=== PATIENT | female | born 1955 | race Caucasian/White ===

== ENCOUNTER → 2018-12-21 | Outpatient (CLI) | payer BC ==
[~2018-12-21] VITALS: Ht 156.2 cm; Wt 90.7 kg
[~2018-12-21] MED LIST: BENADRYL25 M2 PO; DYAZIDE 25 MG-31 CAP PO; STOOL SOFTENER100 M2 PO
[2018-12-21 09:07] VITALS: BP 142/78; PULSE 64
== END ==
LOC: LIGHT
DX: E88.81 Metabolic syndrome and other insulin resistance (principal); I10 Essential (primary) hypertension; R73.01 Impaired fasting glucose; E66.9 Obesity, unspecified; Z68.37 Body mass index [BMI] 37.0-37.9, adult; Z71.3 Dietary counseling and surveillance
CPT/HCPCS: G0463

== ENCOUNTER → 2019-01-02 | Outpatient (CLI) | payer BC ==
[~2019-01-02] VITALS: Ht 156.2 cm; Wt 90.3 kg
[2019-01-02 12:45] VITALS: BP 130/80; PULSE 80
== END ==
LOC: LIGHT 08:10
DX: E88.81 Metabolic syndrome and other insulin resistance (principal); I10 Essential (primary) hypertension; R73.01 Impaired fasting glucose; E66.9 Obesity, unspecified; Z68.37 Body mass index [BMI] 37.0-37.9, adult; Z71.3 Dietary counseling and surveillance

== ENCOUNTER → 2019-01-09 | Outpatient (CLI) | payer BC | LOC: LIGHT 09:45 | DX: E88.81 Metabolic syndrome and other insulin resistance (principal); I10 Essential (primary) hypertension; R73.01 Impaired fasting glucose; E66.9 Obesity, unspecified; Z68.37 Body mass index [BMI] 37.0-37.9, adult; Z71.3 Dietary counseling and surveillance ==

== ENCOUNTER → 2019-01-26 | Outpatient (CLI) | payer BC ==
[~2019-01-26] VITALS: Ht 156.2 cm; Wt 90.3 kg
[2019-01-26 11:39] VITALS: BP 140/90; PULSE 76
== END ==
LOC: LIGHT 11:00
DX: E88.81 Metabolic syndrome and other insulin resistance (principal); I10 Essential (primary) hypertension; R73.01 Impaired fasting glucose; E66.9 Obesity, unspecified; Z68.37 Body mass index [BMI] 37.0-37.9, adult; Z71.3 Dietary counseling and surveillance
CPT/HCPCS: G0463

== ENCOUNTER → 2019-01-31 | Outpatient (CLI) | payer BC | LOC: BHSO 08:46 | DX: Z01.818 Encounter for other preprocedural examination (principal); E66.01 Morbid (severe) obesity due to excess calories ==

== ENCOUNTER → 2019-03-06 | Outpatient (CLI) | payer BC ==
[~2019-03-06] VITALS: Ht 156.2 cm; Wt 90.9 kg
[2019-03-06 15:09] VITALS: BP 150/84; PULSE 76
== END ==
LOC: LIGHT 13:19
DX: Z01.818 Encounter for other preprocedural examination (principal); E66.01 Morbid (severe) obesity due to excess calories; Z68.37 Body mass index [BMI] 37.0-37.9, adult; Z71.3 Dietary counseling and surveillance
CPT/HCPCS: G0463

== ENCOUNTER → 2019-03-21 | Outpatient (CLI) | payer BC, OTHER ==
[~2019-03-21] VITALS: Ht 156.2 cm; Wt 90.0 kg
== END ==
LOC: LIGHT 09:06
DX: E66.01 Morbid (severe) obesity due to excess calories (principal); Z68.36 Body mass index [BMI] 36.0-36.9, adult; Z71.3 Dietary counseling and surveillance

== ENCOUNTER → 2019-03-27 | Outpatient (CLI) | payer BC, OTHER ==
[~2019-03-27] MED LIST changes: +B-12 500 MCG PO; +CENTRUM SILVER1 CTB PO
== END ==
LOC: LIGHT 09:51
DX: E88.81 Metabolic syndrome and other insulin resistance (principal); I10 Essential (primary) hypertension; R73.01 Impaired fasting glucose; E66.9 Obesity, unspecified; Z68.37 Body mass index [BMI] 37.0-37.9, adult; Z71.3 Dietary counseling and surveillance

== ENCOUNTER 2019-03-29 08:15 | Day surgery (SDC) | payer BC, OTHER ==
[2019-03-29] VITALS (8 sets, daily range): BP systolic 127–151; BP diastolic 54–64; PULSE 64–73; TEMP 97.4–98.7
[~2019-03-29] VITALS: Ht 154.9 cm; Wt 89.0 kg
[~2019-03-29 08:15] MED LIST changes: -B-12 500 MCG PO; -CENTRUM SILVER1 CTB PO
[2019-03-29] MEDS ORDERED: B-12 500 MCG PO (09:31)
[2019-03-29] MEDS ORDERED: CENTRUM SILVER1 CTB PO (09:31)
--- NOTE | 2019-03-29 17:30 | NUR ---
Pt ambulated to bathroom, urinated clear yellow urine, then ambulated in quiroz aprox 250feet without difficutly. Back to room, call light in reach
[2019-03-30 00:27] VITALS: BP 106/51; PULSE 65; TEMP 98.5
[2019-03-30 04:17] VITALS: BP 111/50; PULSE 63; TEMP 98
--- NOTE | 2019-03-30 07:18 | NUR ---
Pt to radiology at this time.
--- NOTE | 2019-03-30 07:41 | NUR ---
Pt is awake and A/Ox4, ambulating around room. She states her pain to her abdomen is minimal, rating it a 2/10. Lap sites x4 + STARLA drain site are CDI. STARLA drain draining serosanginous drainage with small clots. Pt tolerating blue gatorade without difficulty. Denies futher needs. Will monitor.
[2019-03-30 08:06] VITALS: BP 117/60; PULSE 66; TEMP 98.2
--- NOTE | 2019-03-30 09:27 | NUR ---
survey workers supervisor met with patient to discuss discharge planning. Patient lives with her spouse (that is currently planning for deployment) in [place], [place]. Patient plans to return home, possibly today and states that her children and grandchildren are local and suppportive. Patient states she will have a ride home. Patient's primary care provider is Dr Jo in [place]. Patient confirms that she has [employer]BS as primary and secondary. Patient works and plans to return on Wednesday, as tolerated. Patient states she has prescription coverage through [employer] and will obtain at a local pharmacy. Patient states that she made advance directives several years ago. Worker confirmed that we do not have directives on file at the hospital and encourages patient to bring them when she can.
--- NOTE | 2019-03-30 10:57 | NUR ---
Follow up visit; Patient thanked Splitting Machine Operator Helper for looking in on her again, offering her encouragement and to keep her in Splitting Machine Operator Helper's prayers.
[2019-03-30 12:02] VITALS: BP 137/66; PULSE 69; TEMP 98.4
[2019-03-30 16:00] VITALS: BP 136/58; PULSE 67; TEMP 98
--- NOTE | 2019-03-30 17:15 | NUR ---
STARLA drain to right side of abdomen removed per order. 2 stitches removed, pressure held and gauze/tegaderm dressing applied.
--- NOTE | 2019-03-30 17:51 | NUR ---
1400 received report from JAMAL Patricia. Patient awake, alert and oriented x 4, lying semi-almaguer's in bed. Patient reported getting up to go to bathroom with no complaints of dizziness or light-headedness. I provided education on splinting techniques for pain, diet and exercise recommendations, and signs and symptoms of post-surgical complications that would need to be reported. Patient expressed no further concerns at this time. Call light within reach, bed at lowest position. 1750 reported off to JAMAL Patricia.
[2019-03-30] MEDS ORDERED: ZOFRAN 4MG T4 MG/TAB PO (17:54)
[2019-03-30] MEDS ORDERED: NORCO 325 MG-51 TAB PO (17:54)
--- NOTE | 2019-03-30 18:24 | NUR ---
Pt was discharged home from hospital. All discharge instructions and paperwork was reviewed with pt who expressed understanding and had no questions. Saline lock removed by [facility] studentJuan. New presciptions given to pt. Pt was escorted out of facility by staff.
[2019-04-03] MEDS ORDERED: ONE-A-DAY WOM200 MCG PO (15:23)
== END 2019-03-30 18:33 | disposition home or self-care (01) ==
LOC: SDCO 08:15 → SURG 14:00 → SDCO 03-30 18:33
DX: E88.81 Metabolic syndrome and other insulin resistance (principal); E66.01 Morbid (severe) obesity due to excess calories; Z68.37 Body mass index [BMI] 37.0-37.9, adult; E78.00 Pure hypercholesterolemia, unspecified; M19.90 Unspecified osteoarthritis, unspecified site; Z90.710 Acquired absence of both cervix and uterus; Z98.51 Tubal ligation status; I10 Essential (primary) hypertension; G47.33 Obstructive sleep apnea (adult) (pediatric); Z79.899 Other long term (current) drug therapy; Z88.8 Allergy status to other drugs, medicaments and biological substances
CPT/HCPCS: OP; J0690; J1100; J1885; J2300; J2405; J2704; J2710; J3010; J7042; J7120

== ENCOUNTER → 2019-04-03 | Outpatient (CLI) | payer BC, OTHER ==
--- NOTE | 2019-03-29 10:20 | NUR ---
Initial visit; Patient thanked Barrel Handler for offering Prayer and spiritual care prior to her surgical procedure.
[~2019-04-03] VITALS: Ht 154.9 cm; Wt 86.0 kg
[~2019-04-03] MED LIST changes: +B-12 500 MCG PO; +CENTRUM SILVER1 CTB PO; +NORCO 325 MG-51 TAB PO; +ONE-A-DAY WOM200 MCG PO; +ZOFRAN 4MG T4 MG/TAB PO
[2019-04-03 15:23] VITALS: BP 124/86; PULSE 72
== END ==
LOC: LIGHT
DX: E88.81 Metabolic syndrome and other insulin resistance (principal); I10 Essential (primary) hypertension; R73.01 Impaired fasting glucose; Z98.84 Bariatric surgery status; Z68.35 Body mass index [BMI] 35.0-35.9, adult; Z71.3 Dietary counseling and surveillance; E66.9 Obesity, unspecified

== ENCOUNTER → 2019-05-01 | Outpatient (CLI) | payer BC, OTHER ==
[~2019-05-01] VITALS: Ht 154.9 cm; Wt 81.0 kg
[2019-05-01 13:01] VITALS: BP 144/84; PULSE 60
== END ==
LOC: LIGHT 12:49
DX: E88.81 Metabolic syndrome and other insulin resistance (principal); I10 Essential (primary) hypertension; R73.01 Impaired fasting glucose; Z98.84 Bariatric surgery status; Z68.33 Body mass index [BMI] 33.0-33.9, adult; Z71.3 Dietary counseling and surveillance

== ENCOUNTER → 2019-11-27 | Outpatient (CLI) | payer BC, OTHER ==
[~2019-11-27] VITALS: Ht 154.9 cm; Wt 70.5 kg
[2019-11-27 14:16] VITALS: BP 134/78; PULSE 72
== END ==
LOC: LIGHT 11:51
DX: E66.8 Other obesity (principal); Z68.29 Body mass index [BMI] 29.0-29.9, adult; Z98.84 Bariatric surgery status
CPT/HCPCS: G0463

== ENCOUNTER 2024-03-21 14:18 | Observation (INO) | payer BC ==
[~2024-03-21] VITALS: Ht 157.5 cm; Wt 73.1 kg
[~2024-03-21 14:18] MED LIST changes: +MOTRIN 600600 MG/TAB PO
[2024-03-21] MEDS ORDERED: OMNICEF 300MG300 MG PO (15:06)
[2024-03-21] MEDS ORDERED: KLOR-CON SPRIN10 MEQ PO (15:06)
[2024-03-21] MEDS ORDERED: TYLENOL 500MG500 MG PO (15:34)
[2024-03-21] MEDS ORDERED: ADVIL200 MG PO (15:35)
[2024-03-21] MEDS ORDERED: Ketorolac 15 MG/ML VIAL IV SCH (15:45)
[2024-03-21] MEDS ORDERED: Ondansetron 4 MG/2 ML VIAL IV PRN (15:45)
[2024-03-21] MEDS ORDERED: Morphine 4 MG/ML VIAL IV PRN (15:45)
[2024-03-21] MEDS ORDERED: NS 1,000 ML IV SCH (15:45)
[2024-03-21] MEDS ORDERED: Morphine 4 MG/ML VIAL IV ONE (15:45)
--- NOTE | 2024-03-21 16:23 | NUR ---
PATIENT ARRIVED TO FLOOR AT 1500 FROM PRIMARY CARE OFFICE. ADMISSION, ASSESSMENT, AND MED REC COMPLETE. PATIENT STATES PAIN 4/10 NO PAIN MEDS REQUESTED BY PATIENT AT THIS TIME. PATIENT SETTLED IN TO ROOM AND SITTING UP IN RECLINER
[2024-03-21 16:29] VITALS: BP 163/92; PULSE 75; TEMP 98.5
[2024-03-21 16:38] LABS: HEMOGLOBIN 11.2 g/dl (12.5-16.0); MEAN CELL VOLUME 90 fl (80.0-100.0); MEAN CORPUSCULAR HEMOGLOBIN 30 pg (27-31); MEAN CORPUSCULAR HGB CONC 33 g/dl (33.0-37.0); MEAN PLATELET VOLUME 9.7 fl (7.4-10.4); PLATELET COUNT 301 K/mm3 (130-400); RED BLOOD COUNT 3.75 M/mm3 (4.10-5.30)
[2024-03-21 16:44] LABS: HEMATOCRIT 33.7 % (37.0-47.0)
[2024-03-21 16:52] LABS: CALCIUM 9.6 mg/dL (8.4-10.2); CREATININE, serum 1.57 mg/dL (0.57-1.11); POTASSIUM 3.8 mEq/L (3.5-4.5)
--- NOTE | 2024-03-21 17:18 | NUR ---
IV STARTED ON RIGHT AC, PATIENT TOLERATED WELL. FLUIDS STARTED NS 125ML/HR
[2024-03-21] MEDS ORDERED: oxyCODONE 5 MG TAB PO PRN (17:45)
[2024-03-21] MEDS ORDERED: hydrALAZINE 10 MG TAB PO PRN (17:45)
[2024-03-21] MEDS ORDERED: diphenhydrAMINE 25 MG CAP PO PRN (17:45)
[2024-03-21] MEDS ORDERED: Acetaminophen 500 MG TAB PO PRN (17:45)
--- NOTE | 2024-03-21 19:30 | NUR ---
PATIENT IS A&O. REPORTS MILD TO MOD DISCOMFORT IN BILATERAL FLANKS FROM KNOWN KIDNEY STONE. NPO FOR SURGERY TOMORROW. IV FLUIDS INFUSING VIA PUMP INTO RIGHT AC IV. STRAINING URINE. PENDING UA. HEAD TO TOE ASSESSMENT COMPLETE. NO OTHER NEEDS AT THIS TIME. CALL LIGHT IN REACH.
[2024-03-21 19:43] VITALS: BP 150/79; PULSE 73; TEMP 98
[2024-03-21 20:00] VITALS: BP_SYST 150
[2024-03-21 21:33] LABS: COLLECTION METHOD CLEAN CATCH
[2024-03-21 21:48] LABS: PH 5.5 (5.0-8.5); URINE APPEARANCE CLEAR (CLEAR/HAZY); URINE BLOOD 3+ (NEGATIVE); URINE COLOR YELLOW (YELLOW); URINE GLUCOSE NEGATIVE (NEGATIVE); URINE KETONE NEGATIVE (NEGATIVE); URINE NITRATE POSITIVE (NEGATIVE); URINE PROTEIN(semi-quant) 1+ (NEGATIVE)
[2024-03-21 23:48] VITALS: PULSE 100; TEMP 101.3
[2024-03-22] VITALS (19 sets, daily range): BP systolic 107–156; BP diastolic 49–84; PULSE 66–88; TEMP 98.1–100.2
[2024-03-22] MEDS ORDERED: Cefepime 1 G in Water For Injection,Sterile 10 ML IV SCH
[2024-03-22 06:26] LABS: CALCIUM 8.9 mg/dL (8.4-10.2); CREATININE, serum 1.13 mg/dL (0.57-1.11); MAGNESIUM 1.8 mg/dL (1.6-2.6); POTASSIUM 4.2 mEq/L (3.5-4.5)
[2024-03-22] MEDS ORDERED: NS 1,000 ML IV SCH (08:30)
[2024-03-22] MEDS ORDERED: Cefdinir 300 MG CAP PO SCH (09:00)
--- NOTE | 2024-03-22 09:02 | NUR ---
SHIFT ASSESSMENT COMPLETED. VSS. PATIENT UP IN RECLINER, NPO STATUS AND IND AROUND ROOM. PATIENT STATES PAIN 4/10 NO PAINMEDS REQUESTED AT THIS TIME. PATIENT STATES NO NEEDS AT THIS TIME. SURGERY SCHEDULE FOR THIS AFTERNOON PER DR. BURGOS. CALL LIGHT IN REACH
--- NOTE | 2024-03-22 09:52 | NUR ---
Initial visit; Patient thanked Ammunition Specialist for looking in on her and keeping her in Ammunition Specialist's prayers. Ammunition Specialist will keep patient in her her prayers.
--- NOTE | 2024-03-22 10:48 | NUR ---
Hose Builder met with patient to discuss discharge planning. Patient lives in [place] with her , Anjel (ph#[phone]) and advised her son, Rajesh lives in [place] as well. Patient sees Dr. Jo for primary care and gets her medications from [facility]. Patient is insured by [employer] which is through her 's employer. Patient also has Medicare PT A and SW updated the admissions team. Patient uses a home CPAP and no other DME. Patient is independent with ADLS and plans to return home at time of discharge. Patient thinks she may have a DPOA-HC but would have to look through her paperwork at home. Discharge Plan: Home
[2024-03-22] MEDS ORDERED: fentaNYL 50 MCG/ML 2 ML VIAL ONE (11:38)
[2024-03-22] MEDS ORDERED: Lidocaine PF 2% (20 MG/ML) 5 ML VIAL ONE (11:38)
[2024-03-22] MEDS ORDERED: dexAMETHasone 10 MG/ML VIAL ONE (11:41)
[2024-03-22] MEDS ORDERED: Ketorolac 30 MG/ML VIAL ONE (11:41)
[2024-03-22] MEDS ORDERED: NS 10 ML IV ONE (11:41)
[2024-03-22] MEDS ORDERED: Ondansetron 4 MG/2 ML VIAL ONE (11:41)
[2024-03-22] MEDS ORDERED: Hyoscyamine 0.125 MG Sublingual TAB SL PRN (12:15)
[2024-03-22] MEDS ORDERED: Ketorolac 15 MG/ML VIAL IV PRN (12:15)
[2024-03-22] MEDS ORDERED: oxyCODONE/Acetaminophen 5-325 MG TAB PO PRN (12:15)
[2024-03-22] MEDS ORDERED: Lidocaine 2% (20 MG/ML) 20 ML UROJET UR ONE (12:23)
[2024-03-22] MEDS ORDERED: hydrALAZINE 20 MG/ML 1 ML VIAL IV PRN (12:45)
[2024-03-22] MEDS ORDERED: HYDROmorphone 1 MG/1 ML SYRINGE [PACU/SDC ONLY] IV PRN (12:45)
[2024-03-22] MEDS ORDERED: Ondansetron 4 MG/2 ML VIAL IV PRN (12:45)
[2024-03-22] MEDS ORDERED: fentaNYL 50 MCG/ML 1 ML SYRINGE/VIAL [PACU/SDC ONLY] IV PRN (12:45)
--- NOTE | 2024-03-22 13:28 | NUR ---
PATIENT ARRIVED TO FLOOR AT 1315 FROM PACU. VSS. PATIENT RESTING IN BED, NO PAIN OR NEEDS AT TIME. CALL LIGHT IN REACH
--- NOTE | 2024-03-22 16:47 | NUR ---
PATIENT DOING WELL AFTER SURGERY, POST OP VITALS COMLETE AND PATIENT HAS BEEN AMBULATING AROUND ROOM IND. TOLERATING LIQUIDS AND SOLID FOOD WELL. PATIENT REPORTS PAIN 2/10 AT THIS TIME NO PAIN MEDS REQUESTED AT THIS TIME. URINATING WITH SOME BURNING BUT TOERABLE PER PATIENT.
--- NOTE | 2024-03-22 22:30 | NUR ---
PT RESTING IN BED, ALERT AND ORIENTEDX4. ASSESSED PT. NO COMPLAINTS OF PAIN AT THIS TIME. PT HAS BEEN VOIDING. NO OTHER COMPLAINTS AT THIS TIME. CALL LIGHT WITHIN REACH.
[2024-03-23] VITALS (8 sets, daily range): BP systolic 121–176; BP diastolic 69–93; PULSE 65–70; TEMP 98.2–98.9
--- NOTE | 2024-03-23 01:06 | NUR ---
report recieved from Kaela BERRY. pt is a&ox4 resting in bed. vss. pt denies pain. post op fluids infusing into right ac IV. scds to ble. pt denies needs at this time. call light in reach.
[2024-03-23 06:15] LABS: BASO % 0.4 % (0.0-2.0); EOS # 0.1 K/mm3 (0.0-0.7); GRAN # 4.6 K/mm3 (1.4-6.5); GRAN % 66.3 % (42.2-75.2); HEMOGLOBIN 10.2 g/dl (12.5-16.0); LYMPH # 1.5 K/mm3 (1.2-3.4); MEAN CELL VOLUME 92 fl (80.0-100.0); MEAN CORPUSCULAR HEMOGLOBIN 30 pg (27-31); MEAN CORPUSCULAR HGB CONC 33 g/dl (33.0-37.0); MEAN PLATELET VOLUME 10.2 fl (7.4-10.4); MONO # 0.7 K/mm3 (0.1-0.6); MONO % 9.7 % (1.7-9.3); PLATELET COUNT 318 K/mm3 (130-400); RED BLOOD COUNT 3.42 M/mm3 (4.10-5.30); REDCELL DISTRIBUTION WIDTH-CV 14.1 % (11.5-14.5)
[2024-03-23 06:18] LABS: HEMATOCRIT 31.3 % (37.0-47.0)
--- NOTE | 2024-03-23 06:30 | NUR ---
pt up ambulating in the room. denies pain. pt is urinating without difficulty. no needs at this time.
[2024-03-23 06:51] LABS: CALCIUM 9.3 mg/dL (8.4-10.2); CREATININE, serum 0.81 mg/dL (0.57-1.11); POTASSIUM 4.5 mEq/L (3.5-4.5)
--- NOTE | 2024-03-23 07:45 | NUR ---
SHIFT ASSESSMENT COMPLETE. PATIENT BP ELEVATED THIS AM SYSTOLIC 178, MEDICATION GIVEN ORDERED SEE EMAR. ALL OTHER VITALS STABLE. ALL MORNING MEDS GIVEN ORDERED. PATIENT STATES PAIN 2/10 NO PAIN MEDS REQUESTED AT THIS TIME. PATIENT STATES SHE IS FEELING WELL AND READY TO GO HOME. ADVISED PATIENT I WILL TALK WITH DR. RODRIGUEZ AND DR. BURGOS ABOUT DISCHARGE TODAY. PATIENT EXPRESSED UNDERSTANDING. PATIENT HAS NO OTHER REQUEST AT THIS TIME. CALL LIGHT IN REACH
== END 2024-03-23 13:51 | disposition home or self-care (01) ==
LOC: SURG 14:18
PROVIDERS: Internal Medicine; Physician Assistant; ADMIT Urology
DX: N20.2 Calculus of kidney with calculus of ureter (principal); N39.0 Urinary tract infection, site not specified; A41.9 Sepsis, unspecified organism; N17.9 Acute kidney failure, unspecified; N13.9 Obstructive and reflux uropathy, unspecified; G47.33 Obstructive sleep apnea (adult) (pediatric); R03.0 Elevated blood-pressure reading, without diagnosis of hypertension
CPT/HCPCS: C1769; C2617; G0378; G0379; J0690; J0692; J1100; J1885; J2270; J2405; J2704; J3010; J7030

== ENCOUNTER 2024-03-30 11:38 | Day surgery (SDC) | payer BC ==
[~2024-03-30] VITALS: Ht 157.5 cm; Wt 70.9 kg
[~2024-03-30 11:38] MED LIST changes: +ADVIL200 MG PO; +KLOR-CON SPRIN10 MEQ PO; +LR 1,000 ML IV SCH; +OMNICEF 300MG300 MG PO; +TYLENOL 500MG500 MG PO
[2024-03-30 13:01] VITALS: BP 148/81; PULSE 72; TEMP 98.4
[2024-03-30] MEDS ORDERED: HYDROmorphone 1 MG/1 ML SYRINGE [PACU/SDC ONLY] IV PRN (13:15)
[2024-03-30] MEDS ORDERED: Ondansetron 4 MG/2 ML VIAL IV PRN (13:15)
[2024-03-30] MEDS ORDERED: fentaNYL 50 MCG/ML 1 ML SYRINGE/VIAL [PACU/SDC ONLY] IV PRN (13:15)
[2024-03-30] MEDS ORDERED: hydrALAZINE 20 MG/ML 1 ML VIAL IV PRN (13:15)
[2024-03-30] MEDS ORDERED: Midazolam 2 MG/2 ML VIAL ONE (15:09)
[2024-03-30] MEDS ORDERED: fentaNYL 50 MCG/ML 2 ML VIAL ONE ×2 (15:09→15:17)
[2024-03-30] MEDS ORDERED: Glycopyrrolate 0.2 MG/ML 1 ML VIAL ONE (15:10)
[2024-03-30] MEDS ORDERED: NS 10 ML IV ONE (15:11)
[2024-03-30] MEDS ORDERED: Ketorolac 30 MG/ML VIAL ONE (15:12)
[2024-03-30] MEDS ORDERED: Ondansetron 4 MG/2 ML VIAL ONE (15:12)
[2024-03-30] MEDS ORDERED: Lidocaine PF 2% (20 MG/ML) 5 ML VIAL ONE (15:12)
[2024-03-30] MEDS ORDERED: dexAMETHasone 10 MG/ML VIAL ONE (15:12)
[2024-03-30] MEDS ORDERED: Lidocaine 2% (20 MG/ML) 20 ML UROJET UR ONE (16:34)
[2024-03-30] MEDS ORDERED: ROXICODONE 55 MG/TAB PO (16:41)
[2024-03-30] MEDS ORDERED: oxyCODONE/Acetaminophen 5-325 MG TAB PO PRN (16:45)
[2024-03-30] MEDS ORDERED: Hyoscyamine 0.125 MG Sublingual TAB SL PRN (16:45)
[2024-03-30 17:16] VITALS: BP 130/81; PULSE 68; TEMP 98
[2024-03-30 17:30] VITALS: BP 142/84; PULSE 63
[2024-03-30 17:45] VITALS: PULSE 62
--- NOTE | 2024-03-30 17:45 | NUR ---
Patient to [facility] via cart at 1716. Bedside handoff received from JAMAL Fox. Pt denies any complaints. VSS. Soda and muffin given per request. Pt puts bridge back in lower mouth. 1736- Discharge instructions and education given to patient. Questions answered. 1745- Pt dressed, IV removed. Up to bathroom at this time.
--- NOTE | 2024-03-30 18:08 | NUR ---
Pt voids urine, denies complaints. Discharges to [employer] car at 1800, refused w/c. Pt denies questions or complaints at that time.
== END 2024-03-30 18:00 | disposition home or self-care (01) ==
LOC: SDCO 11:38
DX: N20.1 Calculus of ureter (principal); I10 Essential (primary) hypertension; G47.33 Obstructive sleep apnea (adult) (pediatric)
CPT/HCPCS: C1769; C2617; J0690; J1100; J1885; J2250; J2405; J2704; J3010; J7120